=== PATIENT | male | born 1960 | race Caucasian/White ===

== ENCOUNTER → 2019-04-02 | Outpatient (CLI) | payer OTHER ==
--- NOTE | 2019-04-02 15:10 | PCVCIMAG ---
APPROVED REPORT Study performed: 04/02/2019 14:00:17 EXAM: Comprehensive 2D, Doppler, and color-flow Echocardiogram Patient Location: Echo lab Status: routine BSA: 1.91 HR: 68 bpmBP: 110/80 mmHg Rhythm: NSR Other Information Study Quality: Good Risk Factors: Cardiac Risk Factors: Hyperlipidemia Indications Chest Pain 2D Dimensions IVSd: 12.95 (7-11mm)LVOT Diam: 21.12 (18-24mm) LVDd: 32.30 mm PWd: 14.36 (7-11mm)Ascending Ao: 31.64 (22-36mm) LVDs: 29.10 (25-40mm) Left Atrium: 31.56 (27-40mm) Aortic Root: 36.55 mm LV Single Plane 4CH: 51.47 % LV Single Plane 2CH: 50.55 % Biplane EF: 52.1 % Volumes Left Atrial Volume (Systole) Single Plane 4CH: 33.82 mLSingle Plane 2CH: 25.96 mL LA ESV Index: 16.00 mL/m2 Aortic Valve AoV Peak Kendrick.: 1.17 m/s AO Peak Gr.: 5.57 mmHgLVOT Max P.22 mmHg LVOT Max V: 0.90 m/s AJAY Vmax: 2.69 cm2 Mitral Valve E/A Ratio: 0.8 MV Decel. Time: 195.56 ms MV E Max Kendrick.: 0.49 m/s MV A Kendrick.: 0.58 m/s TDI E/Lateral E': 5.44E/Medial E': 7.00 Medial E' Kendrick.: 0.07 m/s Lateral E' Kendrick.: 0.09 m/s Pulmonary Valve PV Peak Gr.: 1.53 mmHg Pulmonary Vein P Vein S: 0.73 m/sP Vein A: 0.33 m/s P Vein D: 0.46 m/sP Vein A Dur.: 72.7 msec P Vein S/D Ratio: 1.59 Left Ventricle The left ventricle is normal size. There is normal LV segmental wall motion. There is normal left ventricular wall thickness. Left ventricular systolic function is normal. The left ventricular ejection fraction is within the normal range. LVEF is 60-65%. Right Ventricle The right ventricle is normal size. The right ventricular systolic function is normal. Atria The left atrium size is normal. The right atrium size is normal. Aortic Valve The aortic valve is normal in structure. No aortic regurgitation is present. There is no aortic valvular stenosis. Mitral Valve The mitral valve is normal in structure. There is no mitral valve regurgitation noted. No evidence of mitral valve stenosis. Tricuspid Valve The tricuspid valve is normal in structure. There is no tricuspid valve regurgitation noted. Pulmonic Valve The pulmonary valve is normal in structure. There is no pulmonic valvular regurgitation. Great Vessels The aortic root is normal in size. IVC is normal in size and collapses >50% with inspiration. Pericardium There is no pericardial effusion. <Conclusion> The left ventricle is normal size. There is normal left ventricular wall thickness. Left ventricular systolic function is normal. The right ventricle is normal size. The left atrium size is normal. The aortic valve is normal in structure. There is no mitral valve regurgitation noted. There is no tricuspid valve regurgitation noted.
--- NOTE | 2019-04-02 15:13 | PCVCIMAG ---
APPROVED REPORT Study performed: 04/02/2019 14:14:21 Exam: Stress Echocardiogram Indication: Hyperlipidemia, chest pain Stress Nurse: Ira Batista RN Status: routine Ht: 5 ft 8 in HR: 90 bpm BP: 110/80 mmHg Rhythm: NSR Medical History Medical History: Hyperlipidemia Exercise History: Physically active Procedure The patient underwent an Exercise Stress Test using the Mj Protocol. Blood pressure, heart rate, and EKG were monitored. An Echocardiogram was performed by performing arts technicians in four stages in quad fashion. At peak stress, four selected images were obtained and placed side by side with resting images for comparison. Stress Test Details Stress Test: Exercise stress testing was performed using a modified Mj protocol. HR Resting HR: 90 bpmMax Heart Rate (APMHR): 163 bpm Max HR Achieved: 179 bpmTarget HR (85% APMHR): 138 bpm % of APMHR: 109 Recovery HR: 105 bpm HR response to stress: Normal HR response to stress BP Resting BP: 110/80 mmHg Max BP: 152/78 mmHg Recovery BP: 122/76 mmHg BP response to stress: Normal blood pressure response to stress. ECG Resting ECG: Sinus Rhythm Stress ECG: Sinus Rhythm ST Change: Non-ischemic Recovery ECG: Sinus Rhythm Clinical Reason for Termination: Maximal effort Exercise duration: 10 min 01 sec Highest Stage Achieved: Stage 4: 4.2 mph at 16% grade. Exercise capacity: 13.40 METs Overall Exercise Capacity for Age: Normal Pre-Stress Echo The resting Echocardiogram showed normal left ventricular contractility with an estimated Ejection Fraction of about 55-60%. Normal wall motion in all segments on baseline images. Post-Stress Echo The stress Echocardiogram showed normal left ventricular contractility with an estimated Ejection Fraction of about 60-65%. Normal augmentation of wall motion in all segments on post stress images. Clinical No clinical or ECG evidence for ischemia. Conclusion Clinical Response: Non-ischemic Exercise Capacity: Above average Stress ECG Response: Non-ischemic Stress Echo Images: Non-ischemic The left ventricle is normal in size and wall thickness in both the rest and stress images. Other Information Study Quality: Good <Conclusion> The left ventricle is normal in size and wall thickness in both the rest and stress images.
== END | disposition home or self-care (01) ==
LOC: PCVCIMAG 13:35
PROVIDERS: ATTEND Internal Medicine Cardiovascular Disease
DX: R07.9 Chest pain, unspecified (principal); E78.5 Hyperlipidemia, unspecified
CPT/HCPCS: 93306; 93351